=== PATIENT | female | born 1990 | race African-American/Black ===

== ENCOUNTER 2017-11-25 12:47 | Emergency (ER) | payer OTHER ==
[~2017-11-25] VITALS: Ht 154.9 cm; Wt 69.8 kg
[~2017-11-25 12:47] MED LIST: COLACE100 MG PO; NORCO1 TA1 PO; NORCO1 TA2 PO; STOOL SOFTENER250 MG PO
[2017-11-25 13:06] VITALS: Ht 154.9 cm; Wt 69.8 kg
[2017-11-25 16:03] LABS: BASOPHIL % 0.4 % (0-2); PLATELET COUNT 311 x10^3mcL (130-400)
[2017-11-25 16:08] LABS: CALCIUM 9.2 mg/dL (8.5-10.1); CARBON DIOXIDE 26.9 mmol/L (21-32); CHLORIDE SERUM 103 mmol/L (98-107); CREATININE SERUM 0.9 mg/dL (0.6-1.0); GFR1 > 60 mL/min; GLUCOSE SERUM 74 mg/dL (74-106); POTASSIUM SERUM 3.6 mmol/L (3.5-5.1); SODIUM SERUM 142 mmol/L (136-145)
[2017-11-25 16:13] LABS: ALBUMIN 4.8 g/dL (3.4-5.0); ALKALINE PHOSPHATASE 85 U/L (46-116); ALT/SGPT 26 U/L (14-59); AST/SGOT 27 U/L (15-37); BILIRUBIN TOTAL 0.5 mg/dL (0.20-1.00); TOTAL PROTEIN, SERUM 8.6 g/dL (6.4-8.2)
[2017-11-25 16:48] LABS: AMPHETAMINE QUAL UR NONE DETECTED (NEG <=1000)
[2017-11-25 18:34] VITALS: BP 124/71
== END 2017-11-25 18:34 | disposition home or self-care (01) ==
LOC: ED 12:47
PROVIDERS: Emergency Medicine
DX: R07.89 Other chest pain (principal)
CPT/HCPCS: 36600; 85378; J1885; Q0092